=== PATIENT | male | born 1965 | race Caucasian/White ===

== ENCOUNTER 2017-01-09 14:47 | Emergency (ER) | payer OTHER ==
[~2017-01-09 14:47] MED LIST: ASPIRIN EC81 MG PO; CATAPRES-DPS0.1 MG PO; HUMALOG100 UNIT/1 SQ; LANTUS100 UNITS/ SQ; LASIX DPS40 MG PO; MICRO-K DPS10 MEQ PO; NEURONTIN DPS600 MG PO; PLAVIX75 MG PO; VASOTEC DPS2.5 MG PO; ZOCOR DPS10 MG PO
--- NOTE | 2017-01-12 17:50 | ER ---
ADMIT: 01/09/2017 RM/LOC: ER [facility] MR#: [id number] [address] [address] CHELY JUAREZ [address] [address] Emergency Room Report SEX: M AGE: 51 : 1965 DATE: 01/09/2017 ADDENDUM: HISTORY OF PRESENT ILLNESS: This patient comes into the ER because he noticed some bruising and swelling in his right ankle. He has diabetes and severe neuropathy. He broke his left ankle in the past and did not realize it, and since he noticed swelling today, he is concerned that he may have injured it without realizing it. PHYSICAL EXAMINATION: He does have some ecchymosis on the lateral and medial malleolus. There is no broken skin, no signs of a cellulitis. IMAGING: X-ray was negative for any fractures. DIAGNOSIS: Right ankle sprain. DISCUSSION: He was put in an Osmar wrap and an air splint. We will have him follow up with his doctor if he notices any signs of a cellulitis. Please see my T-sheet. CALVIN Chavez / Konrad Jones MD / franc JOB #: [id number] CC: Konrad Jones MD, Attending Physician Miguelito Lugo MD, Family Physician
[2017-02-25] MEDS ORDERED: ASA CHILDREN'S81 MG PO (11:05)
[2017-02-25] MEDS ORDERED: CATAPRES-DPS0.1 MG PO (11:05)
[2017-02-25] MEDS ORDERED: PLAVIX75 MG PO (11:05)
[2017-02-25] MEDS ORDERED: ZOCOR DPS10 MG PO (11:05)
[2017-02-25] MEDS ORDERED: NEURONTIN DPS600 MG PO (11:05)
[2017-02-25] MEDS ORDERED: GLUCOPHAGE-DPS500 MG PO (11:06)
[2017-02-25] MEDS ORDERED: ULTRAM DPS50 MG PO (11:06)
[2017-02-25] MEDS ORDERED: PRILOSEC DPS20 MG PO (11:06)
[2017-02-25] MEDS ORDERED: HUMULIN R500 UNIT/1 SQ ×2 (11:06→11:07)
[2017-02-25] MEDS ORDERED: TYLENOL DPS325 MG PO (11:07)
[2017-02-25] MEDS ORDERED: LASIX DPS40 MG PO (11:07)
== END 2017-01-09 16:25 | disposition home or self-care (01) ==
LOC: ER 14:47
DX: S93.401A Sprain of unspecified ligament of right ankle, initial encounter (principal); E11.9 Type 2 diabetes mellitus without complications; I10 Essential (primary) hypertension; Z88.8 Allergy status to other drugs, medicaments and biological substances; Z86.73 Personal history of transient ischemic attack (TIA), and cerebral infarction without residual deficits; X58.XXXA Exposure to other specified factors, initial encounter

== ENCOUNTER 2017-02-03 09:57 | Observation (INO) | payer OTHER ==
[~2017-02-03] VITALS: Ht 175.3 cm; Wt 144.0 kg
--- NOTE | 2017-02-12 17:27 | OR ---
ADMIT: 02/03/2017 RM/LOC: 633 [facility] MR#: [id number] [address] [address] ROBERTCHELY ARIAS [address] [place] [id number] Operative/Delivery Room Report SEX: M AGE: 51 : 1965 SURGERY DATE: 02/03/2017 SURGEON: David Pierre DPM HAND WORKER: None. PREOPERATIVE DIAGNOSIS: Ruptured Achilles tendon, right lower extremity. POSTOPERATIVE DIAGNOSIS: Ruptured Achilles tendon, right lower extremity. PROCEDURES: 1. Repair of ruptured Achilles tendon, right lower extremity. 2. Gastrocnemius lengthening to aid in the repair of the ruptured Achilles tendon, right foot. PATHOLOGY: None. ANESTHESIA: General. HEMOSTASIS: Pneumatic thigh tourniquet inflated to 300 mmHg. ESTIMATED BLOOD LOSS: Less than 5 mL. MATERIALS USED: One SpeedBridge from [employer]. INJECTABLES: None. COMPLICATIONS: None. INDICATIONS FOR PROCEDURE: The patient is a 51-year-old diabetic male patient who has presented to my office with a chief complaint of pain to the posterior aspect of the right lower extremity. He does not recall any trauma but an MRI was obtained that did show an Achilles tendon rupture with approximately 5 cm of retraction. The conservative and surgical treatments were discussed with the patient in great detail and he elected to undergo surgical repair of the rupture at this time. The procedure has been explained to the patient in detail. All questions have been answered to his satisfaction. All risks, complications, and benefits have been discussed with the procedure in detail and he has shown that he understands these by signing the consent form and it has been placed in the chart. His n.p.o. status has been confirmed. He has been medically cleared for surgery and no outcomes or guarantees have been given or implied. PROCEDURE IN DETAIL: Under mild sedation, the patient was brought to the operating room, placed on operating table in a supine position. A well-padded pneumatic thigh tourniquet was placed in the patient's right lower extremity and following general induction, the patient was placed on the table in a prone position with appropriate padding and offloading of all areas. The foot was then scrubbed, prepped, and draped in the usual aseptic manner. An ADMIT: 02/03/2017 RM/LOC: 633 [facility] MR#: [id number] [address] [address] [place] [address] Operative/Delivery Room Report SEX: M AGE: 51 : 1965 Esmarch bandage was then used to exsanguinate the right lower extremity and the thigh tourniquet was inflated to 300 mmHg. Attention was then directed to the posterior aspect of the right heel and ankle where at first, a 10 cm incision was made through skin and subcutaneous tissue with care being taken to preserve and retract all vital neurovascular structures with any bleeders being cauterized and ligated as deemed necessary. The incision was then deepened to the paratenon which was incised longitudinally as well. The fracture is readily identified and found to be to the length that was described previously in the MRI. The incision was then extended proximally in order to free the tendon and allow for appropriate reduction and repair. It is noted as the incision is extended proximally that the tendon was scarred in place and was even folded on itself. Once we were able to release these areas, a better repair was achieved but there was still a deficit and so it was noted that a gastrocnemius lengthening is needed to help reduce and restore length to the Achilles tendon. This was performed appropriately as well. The rupture site and the calcaneus are freed of any nonviable tissue at this time and the calcaneus was prepared for the speed bridge which was placed in a stepwise manner in accordance to the instruction that was supplied by the company and as it has been performed multiple times by myself and previous surgeries. Once we were satisfied with the placement of the anchor, it is used to help repair the rupture and hold the tendon in place. There are multiple FiberWire that come into set and were used to help reinforce the repair as well. Once we were satisfied with the reduction and repair, the area was flushed with copious amounts of normal sterile saline. The incision was closed in layers using 2-0 Vicryl, 3-0 Vicryl, and 2-0 nylon in horizontal mattress suture technique. The area was then dressed with a dressing that was applied with the SpeedBridge as well as Xeroform, 4 x 4, fluffs, ABDs, cast padding and a well-padded [id number] posterior splint was placed on the patient's right lower extremity. The patient tolerated the procedure and anesthesia well, was transferred from the OR to the recovery room with vital signs stable and neurovascular status intact. The patient will be admitted for 23-hour observation to ensure that his labs are okay as well as his pain was under control. He will be seen by Physical Therapy in the morning and as long as his pain is controlled with p.o. pain medications and the labs are all within normal and acceptable limits and after he has been seen by Physical Therapy, he will be allowed to return home with appropriate restrictions and precautions, this has been placed in the chart and discussed with the patient and family members. David Pierre DPM/ franc JOB #: [id number] CC: David Pierre, Attending Physician Miguelito Lugo, Family Physician
[2017-02-25] MEDS ORDERED: ZOCOR DPS10 MG PO (11:05)
[2017-02-25] MEDS ORDERED: NEURONTIN DPS600 MG PO (11:05)
[2017-02-25] MEDS ORDERED: ASA CHILDREN'S81 MG PO (11:05)
[2017-02-25] MEDS ORDERED: PLAVIX75 MG PO (11:05)
[2017-02-25] MEDS ORDERED: CATAPRES-DPS0.1 MG PO (11:05)
[2017-02-25] MEDS ORDERED: ULTRAM DPS50 MG PO (11:06)
[2017-02-25] MEDS ORDERED: GLUCOPHAGE-DPS500 MG PO (11:06)
[2017-02-25] MEDS ORDERED: PRILOSEC DPS20 MG PO (11:06)
[2017-02-25] MEDS ORDERED: HUMULIN R500 UNIT/1 SQ ×2 (11:06→11:07)
[2017-02-25] MEDS ORDERED: LASIX DPS40 MG PO (11:07)
[2017-02-25] MEDS ORDERED: TYLENOL DPS325 MG PO (11:07)
== END 2017-02-04 14:15 ==
LOC: SSS 09:57 → 6PED 15:24
PROVIDERS: ADMIT Family Medicine
PROC: 0LQN0ZZ Repair Right Lower Leg Tendon, Open Approach (ICD-10-PCS; principal; 2017-02-03)
DX: S86.011A Strain of right Achilles tendon, initial encounter (principal); G47.30 Sleep apnea, unspecified; I10 Essential (primary) hypertension; K21.9 Gastro-esophageal reflux disease without esophagitis; E11.42 Type 2 diabetes mellitus with diabetic polyneuropathy; E66.9 Obesity, unspecified; N20.0 Calculus of kidney; Z98.890 Other specified postprocedural states; Z88.8 Allergy status to other drugs, medicaments and biological substances; Z79.899 Other long term (current) drug therapy

== ENCOUNTER 2017-02-04 14:34 | Inpatient (IN) | payer OTHER ==
[2017-02-25] MEDS ORDERED: PLAVIX75 MG PO (11:05)
[2017-02-25] MEDS ORDERED: ASA CHILDREN'S81 MG PO (11:05)
[2017-02-25] MEDS ORDERED: CATAPRES-DPS0.1 MG PO (11:05)
[2017-02-25] MEDS ORDERED: ZOCOR DPS10 MG PO (11:05)
[2017-02-25] MEDS ORDERED: NEURONTIN DPS600 MG PO (11:05)
[2017-02-25] MEDS ORDERED: HUMULIN R500 UNIT/1 SQ ×2 (11:06→11:07)
[2017-02-25] MEDS ORDERED: ULTRAM DPS50 MG PO (11:06)
[2017-02-25] MEDS ORDERED: GLUCOPHAGE-DPS500 MG PO (11:06)
[2017-02-25] MEDS ORDERED: PRILOSEC DPS20 MG PO (11:06)
[2017-02-25] MEDS ORDERED: TYLENOL DPS325 MG PO (11:07)
[2017-02-25] MEDS ORDERED: LASIX DPS40 MG PO (11:07)
== END 2017-02-24 15:00 | disposition home health service (06) | DRG 560 ==
DX: Z47.89 Encounter for other orthopedic aftercare (principal); Z68.42 Body mass index [BMI] 45.0-49.9, adult; E11.22 Type 2 diabetes mellitus with diabetic chronic kidney disease; E11.42 Type 2 diabetes mellitus with diabetic polyneuropathy; I12.9 Hypertensive chronic kidney disease with stage 1 through stage 4 chronic kidney disease, or unspecified chronic kidney disease; I87.8 Other specified disorders of veins; E11.649 Type 2 diabetes mellitus with hypoglycemia without coma; K59.09 Other constipation; E11.65 Type 2 diabetes mellitus with hyperglycemia; N18.3 Chronic kidney disease, stage 3 (moderate); E66.01 Morbid (severe) obesity due to excess calories; E78.5 Hyperlipidemia, unspecified; K57.90 Diverticulosis of intestine, part unspecified, without perforation or abscess without bleeding; Z86.73 Personal history of transient ischemic attack (TIA), and cerebral infarction without residual deficits; Z79.4 Long term (current) use of insulin